=== PATIENT | female | born 1965 | race Caucasian/White ===

== ENCOUNTER 2016-06-14 16:48 | Emergency (ER) | payer OTHER ==
[~2016-06-14] VITALS: Ht 170.2 cm; Wt 69.9 kg
[~2016-06-14 16:48] MED LIST: CALCIUM 500 W/V1 TAB PO; MACROBID 100MG100 MG PO; MULTIVITAMIN1 TA1 PO; REGLAN 5MG TABLE5 MG PO; VITAMIN C500 MG PO; [UNRECOGNIZED DRUG - SUPPLY] PO
--- NOTE | 2016-06-14 18:16 | Emergency Room Report ---
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 N Clinical Suspician of Infection? N Mental Status: 1 - Regular (Normal Baseline) Sepsis Risk:Low Sepsis Risk Have you (or family members/close friends) recently traveled outside the [place]? N If Yes, where/when: Have you had exposure to infectious disease within the past month? N TB? Other? Specify: Comment The patient was sent to the emergency department for elevated blood pressure. She says she was up here at the hospital today upstairs to get her hormone shot and they told her her blood pressure was 150s over low 100s and "they did not like that" and advised her to come down and be checked out. She is asymptomatic, no headache, blurred vision, or chest pain. She has a history of "white coat hypertension". She says when she sees Dr. Shaw her blood pressure will be high , he will tell her to follow up with her primary care physician and then it will be normal. She is not treated for hypertension. ALLERGIES Coded Allergies: MDX - Metoclopramide (From REGLAN) (HALLUCINATE 11/01/11) MDX - Oxycodone (From ENDOCET) (HALLUCINATE;N/V 09/30/10) History Medical History General Angina: No VA: No Hypertension? No Hyperlipidemia? Yes CHF? No COPD? No Asthma? No Hernia? No CVA? No Seizures? No Diabetes? No UTI? Yes Stones? No GB Disease: Yes Hepatitis? No Cataracts? No Glaucoma? No TB? No Cancer? 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 Hx LMP menopause Family History Family Hx Diabetes Yes CAD Yes Hypertension Yes Hyperlipidemia Yes Cancer Yes TB No Social History Smoking Hx Smoker: Never Smoker Tobacco: No Packs/day < 1 Pack Alcohol Alcohol: No Review of Systems All Other Systems Reviewed and Negative Eyes denies blurred vision Respiratory cough Cardiovascular denies chest pain, denies palpitations, denies syncope Psychiatric/Neurological denies headache Physical Exam Vital Signs Vital Signs Date Time Temp Pulse Resp B/P Pulse O2 O2 Flow FiO2 Ox Delivery Rate 06/14 1740 98.4 78 18 158/109 97 General Appearance normal appearance, WD/WN Eye Exam - bilateral eye normal exam, bilateral eye PERRL, bilateral eye EOMI Ear, Nose, Throat hearing grossly normal, normal ENT inspection Neck normal inspection, non-tender, supple, full range of motion Respiratory Status Yes: trachea midline, chest symmetrical, non tender chest. No: respiratory distress. Lung Sounds bilateral: normal breath sounds, lungs clear. 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 No Progress - I checked the patient's blood pressure 5 times in the emergency room and consistently ran from 130s to 150 systolic over 90s diastolic. I do not feel that she needs further workup and can follow up with her primary care physician. Departure Departure Disposition DC Home or Self Care(routine) Clinical Impression Primary Impression: Elevated blood pressure reading Condition STABLE Patient Instructions DI for High Blood Pressure Additional Instructions Follow-up with your primary care physician for blood pressure recheck. ED Critical Care Critical Care No at 1830
--- NOTE | 2016-06-14 18:16 | Emergency Room Report ---
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 N Clinical Suspician of Infection? N Mental Status: 1 - Regular (Normal Baseline) Sepsis Risk:Low Sepsis Risk Have you (or family members/close friends) recently traveled outside the [place]? N If Yes, where/when: Have you had exposure to infectious disease within the past month? N TB? Other? Specify: Comment The patient was sent to the emergency department for elevated blood pressure. She says she was up here at the hospital today upstairs to get her hormone shot and they told her her blood pressure was 150s over low 100s and "they did not like that" and advised her to come down and be checked out. She is asymptomatic, no headache, blurred vision, or chest pain. She has a history of "white coat hypertension". She says when she sees Dr. Shaw her blood pressure will be high , he will tell her to follow up with her primary care physician and then it will be normal. She is not treated for hypertension. ALLERGIES Coded Allergies: MDX - Metoclopramide (From REGLAN) (HALLUCINATE 11/01/11) MDX - Oxycodone (From ENDOCET) (HALLUCINATE;N/V 09/30/10) History Medical History General Angina: No RI: No Hypertension? No Hyperlipidemia? Yes CHF? No COPD? No Asthma? No Hernia? No CVA? No Seizures? No Diabetes? No UTI? Yes Stones? No GB Disease: Yes Hepatitis? No Cataracts? No Glaucoma? No TB? No Cancer? 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 Hx LMP menopause Family History Family Hx Diabetes Yes CAD Yes Hypertension Yes Hyperlipidemia Yes Cancer Yes TB No Social History Smoking Hx Smoker: Never Smoker Tobacco: No Packs/day < 1 Pack Alcohol Alcohol: No Review of Systems All Other Systems Reviewed and Negative Eyes denies blurred vision Respiratory cough Cardiovascular denies chest pain, denies palpitations, denies syncope Psychiatric/Neurological denies headache Physical Exam Vital Signs Vital Signs Date Time Temp Pulse Resp B/P Pulse O2 O2 Flow FiO2 Ox Delivery Rate 06/14 1740 98.4 78 18 158/109 97 General Appearance normal appearance, WD/WN Eye Exam - bilateral eye normal exam, bilateral eye PERRL, bilateral eye EOMI Ear, Nose, Throat hearing grossly normal, normal ENT inspection Neck normal inspection, non-tender, supple, full range of motion Respiratory Status Yes: trachea midline, chest symmetrical, non tender chest. No: respiratory distress. Lung Sounds bilateral: normal breath sounds, lungs clear. 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 No Progress - I checked the patient's blood pressure 5 times in the emergency room and consistently ran from 130s to 150 systolic over 90s diastolic. I do not feel that she needs further workup and can follow up with her primary care physician. Departure Departure Disposition DC Home or Self Care(routine) Clinical Impression Primary Impression: Elevated blood pressure reading Condition STABLE Patient Instructions DI for High Blood Pressure Additional Instructions Follow-up with your primary care physician for blood pressure recheck. ED Critical Care Critical Care No at 1830
[2016-06-14 18:35] VITALS: BP 138/79
== END 2016-06-14 18:35 | disposition home or self-care (01) ==
LOC: ER 16:48
DX: R03.0 Elevated blood-pressure reading, without diagnosis of hypertension (principal)